=== PATIENT | male | born 1940 | race Caucasian/White ===

== ENCOUNTER 2018-08-25 18:49 | Emergency (ER) | payer OTHER, MEDICARE ==
[2018-08-25 19:02] VITALS: BP 150/90; PULSE 73; TEMP 97.1; BMI 25.9
--- NOTE | 2018-08-25 20:02 | PDOC ---
History of Present Illness - General Stated Complaint: VOMITING,NAUSEA Time Seen by Provider: 08/25/18 19:00 History Source: Patient, Family - History of Present Illness Initial Comments: 08/25/18 20:01 The patient is a 78 year old male with a PMH of CAD (s/p CABG), ESRD (on peritoneal HD) who presents to our ED c/o acute onset of lightheadedness and vomiting. @ bedside assists with history. Patient was sitting on the couch eating a clair orange when he suddenly felt lightheaded and then vomited (greenish, non-bloody). Denies any associated chest pain, shortness of breath, palpitations. called 911, requested they be taken to [facility] in [place], states they were brought here against their wishes. Patient now c/o drowsiness. 10 point ROS is negative including no abdominal pain, diarrhea/constipation, numbness/tingling, dysuria/hematuria. NKDA Surgical: CABG Social: lifetime non-smoker, social alcohol, denies other toxic habits PMD: Dr. James ([place]) Past History - Past Medical History Allergies/Adverse Reactions: Allergies Allergy/AdvReac Type Severity Reaction Status Date / Time No Known Allergies Allergy Verified 10/28/15 17:32 Home Medications: Ambulatory Orders Lisinopril [Prinivil -] 20 mg PO HS 12/17/14 Metoprolol Succinate [Toprol Xl] 25 mg PO HS 12/17/14 Atorvastatin Ca [Lipitor -] 40 mg PO HS 04/07/15 Fludrocortisone Acetate [Florinef -] 0.1 mg PO DAILY 04/07/15 Cardiac Disorders: Yes (TRIPLE BYPASS) HTN: Yes Hypercholesterolemia: Yes - Surgical History Cardiac Surgery: Yes (AORTIC VALVE REPLACEMENT) - Suicide/Smoking/Psychosocial Hx Smoking History: Unknown if ever smoked Hx Alcohol Use: No Drug/Substance Use Hx: No Substance Use Type: None *Physical Exam - Vital Signs Last Vital Signs Temp Pulse Resp BP Pulse Ox 97.1 F L 73 20 150/90 96 08/25/18 18:53 08/25/18 18:53 08/25/18 18:53 08/25/18 18:53 08/25/18 18:53 ED Treatment Course - RADIOLOGY Radiology Studies Ordered: Category Date Time Status CXRPORT [CHEST X-RAY PORTABLE*] [RAD] Stat Radiology 08/25/18 19:11 Ordered Medical Decision Making - Medical Decision Making 08/25/18 20:10 78 year old male w/acute onset of lightheadedness + emesis. Patient and patient's state they wish to be evaluated @ [facility]. Patient requesting transfer to [facility]. Patient informed they can stay and be evaluated in our ED or sign out AMA and present to [facility] for evaluation. Patient states he wishes to leave AMA. Refusing physical exam and all evaluation. 08/25/18 20:24 The patient is clinically sober, free from distracting injury, appears to have intact insight and judgment and reason and in my opinion has the capacity to make decisions. The patient presents with emesis and lightheadedness. I have explained that I am concerned that this may represent a heart attack, stroke, sepsis, appendicitis, cholecystitis, abdominal aneursym. The patient and patient's have both verbalized an understanding of my concerns. I have discussed the need for admission to get more information about potential causes of the patients emesis and lightheadedness. I have told the patient that if he leaves and has worsening emesis and lightheadedness, he could get much worse , could become critically ill, and could possibly become disabled or . I have asked him to stay in the hospital for evaluation monitoring. He is unwilling to stay for any evaluation. He is refusing any further care and is leaving against medical advice. I am unable to convince the patient to stay. I have answered all their questions. 08/25/18 20:26 08/25/18 20:47 *DC/Admit/Observation/Transfer Diagnosis at time of Disposition: Vomiting and diarrhea - Discharge Dispostion Disposition: AGAINST MEDICAL ADVICE Condition at time of disposition: Unchanged/Unknown - Referrals Referrals: Baudilio Calderón [Primary Care Provider] - - Patient Instructions - Post Discharge Activity
== END 2018-08-25 20:19 | disposition left against medical advice (07) ==
LOC: JER 18:49
DX: R11.10 Vomiting, unspecified (principal); R19.7 Diarrhea, unspecified; E78.00 Pure hypercholesterolemia, unspecified; Z95.2 Presence of prosthetic heart valve; I10 Essential (primary) hypertension
CPT/HCPCS: 99281-25

== ENCOUNTER 2019-09-07 00:22 | Inpatient (IN) | payer OTHER, MEDICARE ==
--- NOTE | 2019-09-07 01:26 | PDOC ---
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
--- NOTE | 2019-09-07 01:26 | PDOC ---
History of Present Illness - General Chief Complaint: Weakness Stated Complaint: WEAKNESS,DIALYSIS PT Time Seen by Provider: 09/07/19 01:22 - History of Present Illness Initial Comments: 09/07/19 01:25 79 yo M with h/o CAD s/p CABG, ESRD (Peritoneal HD), who p/w generalized weakness. Patient at bedside to assist in report. She states that patient was "weak," following return from outpt. apt. with PMD (09/06/19). Patient unable to ambulate up stairs, and unable to stand from seated position. Patient denies complaints. states that she was unable to perform daily peritoneal dialysis on patient. Pt. cell [phone] Massiel Coffman. Patient denies BERNAL, vision change, palpitations, cough, wheezing, orthopena, PND , leg swelling/pain, N/V, F,C, CP, SOB, urinary complaints, hematuria, BPR, abdominal pain, diarrhea, constipation, lightheadedness, sensory changes. PMHx: as noted above ROS: as noted SHx: Denies Etoh, IVDA, tobacco use Allergies: NKDA Past History - Past Medical History Allergies/Adverse Reactions: Allergies Allergy/AdvReac Type Severity Reaction Status Date / Time No Known Allergies Allergy Verified 09/07/19 01:07 Home Medications: Ambulatory Orders Metoprolol Succinate [Toprol Xl] 25 mg PO HS 12/17/14 Atorvastatin Ca [Lipitor -] 40 mg PO HS 04/07/15 Aspirin [ASA -] 325 mg PO DAILY 09/07/19 Calcitriol [Rocaltrol -] 0.25 mcg PO DAILY 09/07/19 Donepezil HCl [Aricept -] 10 mg PO DAILY 09/07/19 Lenalidomide [Revlimid] 0 mg PO WEEKLY 09/07/19 Losartan Potassium [Cozaar -] 25 mg PO DAILY 09/07/19 Sevelamer Carbonate [Renvela] 800 mg PO BID 09/07/19 Cardiac Disorders: Yes (TRIPLE BYPASS) HTN: Yes Hypercholesterolemia: Yes - Surgical History Cardiac Surgery: Yes (AORTIC VALVE REPLACEMENT) - Psycho Social/Smoking Cessation Hx Smoking History: Never smoked Hx Alcohol Use: No Drug/Substance Use Hx: No Substance Use Type: None Review of Systems - Review of Systems Comments:: 09/07/19 01:48 GENERAL/CONSTITUTIONAL: No fever or chills. No weakness. HEAD, EYES, EARS, NOSE AND THROAT: No change in vision. No ear pain or discharge. No sore throat. CARDIOVASCULAR: No chest pain or shortness of breath RESPIRATORY: No cough, wheezing, or hemoptysis. GASTROINTESTINAL: No nausea, vomiting, diarrhea or constipation. GENITOURINARY: No dysuria, frequency, or change in urination. MUSCULOSKELETAL: No joint or muscle swelling or pain. No neck or back pain. SKIN: No rash NEUROLOGIC: + Weakness. No headache, vertigo, loss of consciousness, or change in strength/sensation. ENDOCRINE: No increased thirst. No abnormal weight change HEMATOLOGIC/LYMPHATIC: No anemia, easy bleeding, or history of blood clots. ALLERGIC/IMMUNOLOGIC: No hives or skin allergy. *Physical Exam - Vital Signs Last Vital Signs Temp Pulse Resp BP Pulse Ox 99.6 F 80 15 112/64 97 09/07/19 00:30 09/07/19 00:30 09/07/19 00:30 09/07/19 00:30 09/07/19 00:30 - Physical Exam Comments: 09/07/19 01:52 GENERAL: Awake, alert, and fully oriented, in no acute distress HEAD: No signs of trauma, normocephalic, atraumatic EYES: PERRLA, EOMI, sclera anicteric, conjunctiva clear ENT: Hearing grossly normal, nares patent, oropharynx clear without exudates. Moist mucosa NECK: Normal ROM, supple, no lymphadenopathy, JVD, or masses LUNGS: No distress, speaks full sentences, clear to auscultation bilaterally HEART: Regular rate and rhythm, normal S1 and S2, no murmurs, rubs or gallops, peripheral pulses normal and equal bilaterally. ABDOMEN: + LLQ peritoneal dialysis catheter insertion site, c/d/i. Soft, nontender, normoactive bowel sounds. No guarding, no rebound. No masses EXTREMITIES : Normal inspection, Normal range of motion, no edema. No clubbing or cyanosis NEUROLOGICAL: Cranial nerves II through XII grossly intact. Normal speech, no focal sensorimotor deficits SKIN: Warm, Dry, normal turgor, no rashes or lesions noted ED Treatment Course - LABORATORY CBC & Chemistry Diagram: 09/07/19 02:00 09/07/19 02:00 Medical Decision Making - Medical Decision Making 09/07/19 01:44 79 yo M with h/o CAD s/p CABG, ESRD (Peritoneal HD), who p/w generalized weakness, inability to ambulate. Vitals wnl, AF, A&Ox4. Physical exam unremarkable. Patient neurologically intact. Will assess for cardiac dysarythmia , hypoglycemia, electrolyte abnml, metabolic and toxic derangements, acid base disturbances, infection. Ed Course: 09/07/19 02:45 EKG: NSR with absent MINH, STD. + LAD, LVH, OK 204, Q wave lead III. Nml R wave progression. 09/07/19 02:48 Laboratory Tests 09/07/19 09/07/19 09/07/19 02:00 02:00 02:00 WBC 3.4 L Hgb 9.2 L Hct 28.0 L Plt Count 106 L PT with INR 13.70 H INR 1.16 H Sodium 133 L Potassium 5.0 BUN 46.2 H Creatinine 8.6 H* 09/07/19 02:48 Patient to be admitted for generalized weakness Contacted patient Nephrology physician Dr. Sandy Baker [phone] 09/07/19 03:[address] Armas. Admit med/surg Discharge - Discharge Information Problems reviewed: Yes Clinical Impression/Diagnosis: Generalized weakness, Missed dialysis Condition: Stable - Admission Yes - Follow up/Referral - Patient Discharge Instructions - Post Discharge Activity
[2019-09-07 02:22] LABS: BASO % 1.2 % (0-2.0); EOS % 0.9 % (0-4.5); HEMOGLOBIN 9.2 GM/dL (11.7-16.9); MCH 33.1 pg (25.7-33.7); MCHC 32.8 g/dl (32.0-35.9); MEAN CELL VOLUME 101.1 fl (80-96); MEAN PLT VOLUME 8.4 fl (7.5-11.1); MONO % 13.8 % (3.8-10.2); NEUT % 72.1 % (42.8-82.8); PLATELET COUNT 106 K/MM3 (134-434); RBC 2.77 M/mm3 (4.00-5.60); RDW 16.2 % (11.9-15.9); WHITE BLOOD COUNT 3.4 K/mm3 (4.0-10.0)
[2019-09-07 02:32] LABS: INR 1.16 (0.83-1.09); PROTHROMBIN TIME (PATIENT) 13.7 SEC (9.7-13.0)
[2019-09-07 02:44] LABS: ALBUMIN 2.7 g/dl (3.4-5.0); BILIRUBIN,TOTAL 0.4 mg/dL (0.2-1); BLOOD UREA NITROGEN 46.2 mg/dL (7-18); CALCIUM 9.1 mg/dL (8.5-10.1); TOT PROT 6.4 g/dl (6.4-8.2)
[2019-09-07 02:46] LABS: CREATININE 8.6 mg/dL (0.55-1.3)
[2019-09-07 02:50] LABS: MAGNESIUM 1.8 mg/dL (1.8-2.4); N-TERMINAL BNP 3007.9 pg/ml (5-450)
--- NOTE | 2019-09-07 04:40 | PN ---
Teaching Attending Note Name of Resident: Nagi Russ ATTENDING PHYSICIAN STATEMENT I saw and evaluated the patient. I reviewed the resident's note and discussed the case with the resident. I agree with the resident's findings and plan as documented. SUBJECTIVE: 79-year-old male with end-stage renal disease on peritoneal dialysis, CAD status post CABG was brought in by his last evening after he was unable to ambulate up the stairs of his home due to generalized weakness. Patient denied any headaches, chest pain, abdominal pain, shortness of breath, focal weaknesses , loss of sensation. Also denied any fevers chills, cough, diarrhea, dysuria. OBJECTIVE: Last Vital Signs Temp Pulse Resp BP Pulse Ox 99.6 F 78 18 110/61 99 09/07/19 00:30 09/07/19 04:42 09/07/19 04:42 09/07/19 04:42 09/07/19 04:42 GENERAL: Well developed, well nourished. Awake and alert. No acute distress. HEENT: Normocephalic, atraumatic. PERRLA, EOMI. No conjunctival pallor. Sclera are non- icteric. Moist mucous membranes. Oropharynx is clear. NECK: Supple. Full ROM. No JVD. Carotid pulses 2+ and symmetric, without bruits. No thyromegaly. No lymphadenopathy. CARDIOVASCULAR: Regular rate and rhythm. No murmurs, rubs, or gallops. Distal pulses are 2+ and symmetric. PULMONARY: No evidence of respiratory distress. Lungs clear to auscultation bilaterally. No wheezing, rales or rhonchi. ABDOMINAL: Soft. Non-tender. Non-distended. No rebound or guarding. No organomegaly. Normoactive bowel sounds. Peritoneal dialysis catheter noted to be in abdomen MUSCULOSKELETAL Normal range of motion at all joints. No bony deformities or tenderness. No CVA tenderness. EXTREMITIES: No cyanosis. No clubbing. No edema. No calf tenderness. SKIN: Warm and dry. Normal capillary refill. No rashes. No jaundice. NEUROLOGICAL: Alert, awake, appropriate. Cranial nerves 2-12 intact. No deficits to light touch and temperature in face, upper extremities and lower extremities. No motor deficits in the in face, upper extremities and lower extremities. Normoreflexic in the upper and lower extremities. Normal speech. PSYCHIATRIC: Cooperative. Good eye contact. Appropriate mood and affect. Abnormal Lab Results 09/07/19 09/07/19 09/07/19 02:00 02:00 02:00 WBC 3.4 L RBC 2.77 L Hgb 9.2 L Hct 28.0 L MCV 101.1 H RDW 16.2 H Plt Count 106 L Monocytes % 13.8 H Monocytes % (Manual) 14 H PT with INR INR Sodium 133 L BUN 46.2 H Creatinine 8.6 H* AST 8 L ALT 10 L Alkaline Phosphatase 118 H B-Natriuretic Peptide 3007.9 H Albumin 2.7 L 09/07/19 02:00 WBC RBC Hgb Hct MCV RDW Plt Count Monocytes % Monocytes % (Manual) PT with INR 13.70 H INR 1.16 H Sodium BUN Creatinine AST ALT Alkaline Phosphatase B-Natriuretic Peptide Albumin Imaging studies reviewed ASSESSMENT AND PLAN: Generalized weakness with inability to ambulate. However do not suspect any CMM PROGRAMMER lesion observed no focal neurological deficits appreciated. Admit to [facility] Fall precautions and bedrest PT evaluation #End-stage renal disease on peritoneal dialysis Renal consult for peritoneal dialysis #CAD status post CABG ASA Statin #DVT prophylaxisheparin subcutaneously
[2019-09-07 04:56] LABS: ANISOCYTOSIS 2+; MACROCYTOSIS 0; PLATELET ESTIMATE DECREASED
--- NOTE | 2019-09-07 05:03 | HP ---
CHIEF COMPLAINT: Unable to walk PCP: Dr. Corrie Calderón ([facility]) HISTORY OF PRESENT ILLNESS: 79 y/o male w PMH CAD s/ CABG, ESRD on HD (daily peritoneal) BIBEMS 2/2 concern from that patient lacked energy. Pt states that he had just completed his home peritoneal dialysis and took a nap. The pt reports that he was awakened by EMT. Pt denies inability to walk. He states at baseline he normally walks w/o assistance throughout his home, which has two flights of stairs. Pt was brought it for concern that he could not take stairs or ambulate. He reports no pain. He denies CP, SOB, and dizziness. ER course was notable for: (1) Weakness reported and taken to CT Recent Travel: Denies Family history: Denies PAST MEDICAL HISTORY: CAD s/ CABG, ESRD on HD (daily peritoneal) PAST SURGICAL HISTORY: CABG 2008 Social History: Smoking: Former smoker Alcohol: Wine w dinner Drugs: Denies Allergies No Known Allergies Allergy (Verified 09/07/19 01:07) HOME MEDICATIONS: Home Medications Medication Instructions Recorded Metoprolol Succinate [Toprol Xl] 25 mg PO HS 12/17/14 Atorvastatin Ca [Lipitor -] 40 mg PO HS 04/07/15 Aspirin [ASA -] 325 mg PO DAILY 09/07/19 Calcitriol [Rocaltrol -] 0.25 mcg PO DAILY 09/07/19 Donepezil HCl [Aricept -] 10 mg PO DAILY 09/07/19 Lenalidomide [Revlimid] 0 mg PO WEEKLY 09/07/19 Losartan Potassium [Cozaar -] 25 mg PO DAILY 09/07/19 Sevelamer Carbonate [Renvela] 800 mg PO BID 09/07/19 REVIEW OF SYSTEMS CONSTITUTIONAL: Absent: fever, chills, diaphoresis, generalized weakness, malaise, loss of appetite, weight change HEENT: Absent: rhinorrhea, nasal congestion, throat pain, throat swelling, difficulty swallowing, mouth swelling, ear pain, eye pain, visual changes CARDIOVASCULAR: Absent: chest pain, syncope, palpitations, irregular heart rate, lightheadedness , peripheral edema RESPIRATORY: Absent: cough, shortness of breath, dyspnea with exertion, orthopnea, wheezing, stridor, hemoptysis GASTROINTESTINAL: Absent: abdominal pain, abdominal distension, nausea, vomiting, diarrhea, constipation, melena, hematochezia GENITOURINARY: Absent: dysuria, frequency, urgency, hesitancy, hematuria, flank pain, genital pain MUSCULOSKELETAL: Absent: myalgia, arthralgia, joint swelling, back pain, neck pain SKIN: Absent: rash, itching, pallor HEMATOLOGIC/IMMUNOLOGIC: Absent: easy bleeding, easy bruising, lymphadenopathy, frequent infections ENDOCRINE: Absent: unexplained weight gain, unexplained weight loss, heat intolerance, cold intolerance NEUROLOGIC: Absent: headache, focal weakness or paresthesias, dizziness, unsteady gait, seizure, mental status changes, bladder or bowel incontinence PSYCHIATRIC: Absent: anxiety, depression, suicidal or homicidal ideation, hallucinations. PHYSICAL EXAMINATION Vital Signs - 24 hr 09/07/19 09/07/19 09/07/19 00:30 04:40 04:42 Temperature 99.6 F Pulse Rate 80 Pulse Rate [ 78 Radial] Respiratory 15 18 Rate Blood Pressure 112/64 Blood Pressure 110/61 [Left Arm] O2 Sat by Pulse 97 99 99 Oximetry (%) GENERAL: AOx3, in no acute distress. Tangential thought but orientable HEAD: NCAT EYES: BALA, EOMI, conjunctiva clear. ENT: Dentures in place. Ears normal, nares patent, oropharynx clear without exudates. Moist mucous membranes. NECK: Normal range of motion, supple without lymphadenopathy, JVD, or masses. LUNGS: CTAB. No wheezes, and no crackles. No accessory muscle use. HEART: RRR s1 s2 ABDOMEN: Dialysis port in place. Soft, some fluid, non-distended BS present in all 4 quadrants, non-distended, no JVD, MUSCULOSKELETAL: No bony deformities or tenderness. No CVA tenderness. UPPER EXTREMITIES: 2+ pulses, warm, well-perfused. No cyanosis. No clubbing. No peripheral edema. LOWER EXTREMITIES: 2+ pulses, warm, well-perfused. No calf tenderness. No peripheral edema. NEUROLOGICAL: Cranial nerves II-XII intact. Strength 5/5 in all extremities. Normal speech. Gait not appreciated. PSYCHIATRIC: Tangential thought but orientable. Cooperative. Good eye contact. Appropriate mood and affect. SKIN: Warm, dry, normal turgor, no rashes or lesions noted, normal capillary refill. Laboratory Results - last 24 hr 09/07/19 09/07/19 09/07/19 02:00 02:00 02:00 WBC 3.4 L RBC 2.77 L Hgb 9.2 L Hct 28.0 L MCV 101.1 H MCH 33.1 MCHC 32.8 RDW 16.2 H Plt Count 106 L MPV 8.4 Absolute Neuts (auto) 2.5 Neutrophils % 72.1 Neutrophils % (Manual) 62.0 Band Neutrophils % 13.0 Lymphocytes % 12.0 Lymphocytes % (Manual) 10.0 Monocytes % 13.8 H Monocytes % (Manual) 14 H Eosinophils % 0.9 Eosinophils % (Manual) 0.0 Basophils % 1.2 Basophils % (Manual) 1.0 Myelocytes % (Man) 0 Promyelocytes % (Man) 0 Blast Cells % (Manual) 0 Nucleated RBC % 0 Metamyelocytes 0 Hypochromia 1+ Platelet Estimate Decreased Polychromasia 0 Poikilocytosis 1+ Anisocytosis 2+ Microcytosis 2+ Macrocytosis 0 PT with INR INR PTT (Actin FS) Sodium Potassium Chloride Carbon Dioxide Anion Gap BUN 46.2 Creatinine 8.6 Est GFR (CKD-EPI)AfAm Est GFR (CKD-EPI)NonAf Random Glucose Calcium Magnesium 1.8 Total Bilirubin AST ALT Alkaline Phosphatase 118 Creatine Kinase 166 Creatine Kinase Index 1.2 CK-MB (CK-2) 2.0 Troponin I < 0.02 B-Natriuretic Peptide 3007.9 H Total Protein Albumin Alcohol, Quantitative Cancelled < 3.0 09/07/19 09/07/19 09/07/19 02:00 02:00 02:00 WBC RBC Hgb Hct MCV MCH MCHC RDW Plt Count MPV Absolute Neuts (auto) Neutrophils % Neutrophils % (Manual) Band Neutrophils % Lymphocytes % Lymphocytes % (Manual) Monocytes % Monocytes % (Manual) Eosinophils % Eosinophils % (Manual) Basophils % Basophils % (Manual) Myelocytes % (Man) Promyelocytes % (Man) Blast Cells % (Manual) Nucleated RBC % Metamyelocytes Hypochromia Platelet Estimate Polychromasia Poikilocytosis Anisocytosis Microcytosis Macrocytosis PT with INR INR PTT (Actin FS) Sodium 133 L Potassium 5.0 Chloride 100 Carbon Dioxide 24 Anion Gap 8 BUN 46.2 H Creatinine 8.6 H* Est GFR (CKD-EPI)AfAm 6.13 Est GFR (CKD-EPI)NonAf 5.29 Random Glucose 94 Calcium 9.1 Magnesium Cancelled Total Bilirubin 0.4 AST 8 L ALT 10 L Alkaline Phosphatase 118 H Creatine Kinase Creatine Kinase Index CK-MB (CK-2) Troponin I B-Natriuretic Peptide Cancelled Total Protein 6.4 Albumin 2.7 L Alcohol, Quantitative 09/07/19 09/07/19 02:00 02:31 WBC RBC Hgb Hct MCV MCH MCHC RDW Plt Count MPV Absolute Neuts (auto) Neutrophils % Neutrophils % (Manual) Band Neutrophils % Lymphocytes % Lymphocytes % (Manual) Monocytes % Monocytes % (Manual) Eosinophils % Eosinophils % (Manual) Basophils % Basophils % (Manual) Myelocytes % (Man) Promyelocytes % (Man) Blast Cells % (Manual) Nucleated RBC % Metamyelocytes Hypochromia Platelet Estimate Polychromasia Poikilocytosis Anisocytosis Microcytosis Macrocytosis PT with INR 13.70 H INR 1.16 H PTT (Actin FS) 30.5 Sodium Potassium Chloride Carbon Dioxide Anion Gap BUN Creatinine Est GFR (CKD-EPI)AfAm Est GFR (CKD-EPI)NonAf Random Glucose Calcium Magnesium Total Bilirubin AST ALT Alkaline Phosphatase Creatine Kinase Creatine Kinase Index CK-MB (CK-2) Troponin I B-Natriuretic Peptide 3,007.9 Total Protein Albumin Alcohol, Quantitative ASSESSMENT/PLAN: 79 y/o male w PMH CAD s/ CABG, ESRD on HD (daily peritoneal) BIBEMS 2/2 concern from that patient lacked energy after home peritoneal dialysis session. # Generalized weakness - PT - F/u Head CT - Fall precautions - Contact PCP to clarify PMH # ESRD - Consult nephrology # Pancytopenia - Contact PCP to clarify PMH and need for REVLIMID (lenalidomide) # CAD s/p CABG - Cont. home regimen ASA and statin # F/E/N - I/O po hydration - Cont. to monitor - Renal diet # DVT prophylaxis - Heparin SQ # Disposition - Admit to med/surg Nagi Russ MD Visit type - Emergency Visit Emergency Visit: Yes ED Registration Date: 09/07/19 Care time: The patient presented to the Emergency Department on the above date and was hospitalized for further evaluation of their emergent condition. - New Patient This patient is new to me today: Yes Date on this admission: 09/07/19 - Critical Care Critical Care patient: No ATTENDING PHYSICIAN STATEMENT I saw and evaluated the patient. I reviewed the resident's note and discussed the case with the resident. I agree with the resident's findings and plan as documented. SUBJECTIVE: OBJECTIVE: ASSESSMENT AND PLAN:
[2019-09-07 05:30] VITALS: TEMP 97.9; BMI 25.1
[2019-09-07] MEDS ORDERED: HEPARIN NA (PORCINE) 5,000 UNITS/ML 1ML VIAL SQ SCH (06:00)
--- NOTE | 2019-09-07 08:35 | PN ---
Progress Note, Physician History of Present Illness: 79 y/o male w PMH CAD s/ CABG, ESRD on HD (daily peritoneal) BIBEMS 2/2 concern from that patient lacked energy. Pt states that he had just completed his home peritoneal dialysis and took a nap. The pt reports that he was awakened by EMT. Pt denies inability to walk. He states at baseline he normally walks w/o assistance throughout his home, which has two flights of stairs. Pt was brought it for concern that he could not take stairs or ambulate. He reports no pain. He denies CP, SOB, and dizziness. ER course was notable for: (1) Weakness reported and taken to CT - Current Medication List Current Medications: Active Medications Aspirin (Asa -) 325 mg PO DAILY [facility] Atorvastatin Calcium (Lipitor -) 40 mg PO HS [facility] Calcitriol (Rocaltrol -) 0.25 mcg PO DAILY [facility] Donepezil HCl (Aricept -) 10 mg PO DAILY [facility] Heparin Sodium (Porcine) (Heparin -) 5,000 unit SQ TID [facility] Last Admin: 09/07/19 06:48 Dose: 5,000 unit Losartan Potassium (Cozaar -) 25 mg PO DAILY [facility] Metoprolol Succinate (Toprol Xl -) 25 mg PO HS [facility] Sevelamer Carbonate (Renvela -) 800 mg PO BID [facility] - Objective Vital Signs: Vital Signs Temperature 97.9 F 09/07/19 05:19 Pulse Rate 77 09/07/19 05:19 Respiratory Rate 18 09/07/19 05:19 Blood Pressure 108/62 09/07/19 05:19 O2 Sat by Pulse Oximetry (%) 96 09/07/19 05:19 Constitutional: Yes: Well Nourished, No Distress, Calm Eyes: Yes: WNL, Conjunctiva Clear HENT: Yes: WNL, Atraumatic, Normocephalic Neck: Yes: WNL, Supple, Trachea Midline Cardiovascular: Yes: WNL, Regular Rate and Rhythm Respiratory: Yes: WNL, Regular, CTA Bilaterally Gastrointestinal: Yes: Other (PD cath noted) ...Rectal Exam: Yes: Deferred Genitourinary: Yes: WNL Breast(s): Yes: WNL Musculoskeletal: Yes: WNL Extremities: Yes: WNL Edema: No Peripheral Pulses WNL: Yes Peripheral Pulses: Left Radial: 2+, Right Radial: 2+, Left Doralis Pedis: 2+, Right Dorsalis Pedis: 2+, Left Femoral: 2+, Right Femoral: 2+ Integumentary: Yes: WNL Neurological: Yes: WNL, Alert, Oriented ...Motor Strength: WNL Psychiatric: Yes: WNL Labs: CBC, BMP 09/07/19 02:00 09/07/19 02:00 INR, PTT INR 1.16 (0.83-1.09) H 09/07/19 02:00 - ....Imaging Chest X-ray: Report Reviewed, Image Reviewed (CXR no acute pathology) Cat Scan: Report Reviewed (Moserate atrophy, no acute pathology) Problem List - Problems (1) ESRD on peritoneal dialysis Code(s): N18.6 - END STAGE RENAL DISEASE; Z99.2 - DEPENDENCE ON RENAL DIALYSIS (2) Prophylactic measure Code(s): Z29.9 - ENCOUNTER FOR PROPHYLACTIC MEASURES, UNSPECIFIED (3) CAD (coronary artery disease) Code(s): I25.10 - ATHSCL HEART DISEASE OF [place] CORONARY ARTERY W/O ANG PCTRS (4) Hx of CABG Code(s): Z95.1 - PRESENCE OF AORTOCORONARY BYPASS GRAFT (5) Generalized weakness Code(s): R53.1 - WEAKNESS (6) Pancytopenia Code(s): D61.818 - OTHER PANCYTOPENIA
[2019-09-07 09:16] LABS: HEMATOCRIT 27.9 % (35.4-49); HEMOGLOBIN 9.3 GM/dL (11.7-16.9); MCH 33.1 pg (25.7-33.7); MCHC 33.2 g/dl (32.0-35.9); MEAN CELL VOLUME 99.9 fl (80-96); MEAN PLT VOLUME 8.4 fl (7.5-11.1); PLATELET COUNT 107 K/MM3 (134-434); RBC 2.79 M/mm3 (4.00-5.60); RDW 15.9 % (11.9-15.9)
[2019-09-07 09:58] LABS: BLOOD UREA NITROGEN 46.8 mg/dL (7-18); CALCIUM 9.1 mg/dL (8.5-10.1); MAGNESIUM 1.8 mg/dL (1.8-2.4); PHOSPHOROUS 3.4 mg/dL (2.5-4.9); POTASSIUM 4.6 mmol/L (3.5-5.1)
[2019-09-07] MEDS ORDERED: DONEPEZIL HCL 10 MG TABLET (FP) PO SCH (10:00)
[2019-09-07] MEDS ORDERED: CALCITRIOL 0.25 MCG CAPSULE (FP) PO SCH (10:00)
[2019-09-07] MEDS ORDERED: LOSARTAN POTASSIUM 25 MG TABLET PO SCH (10:00)
[2019-09-07] MEDS ORDERED: ASPIRIN 325 MG TABLET PO SCH (10:00)
[2019-09-07] MEDS ORDERED: SEVELAMER CARBONATE 800 MG TAB (FP) PO SCH (10:00)
[2019-09-07 10:06] LABS: CREATININE 8.9 mg/dL (0.55-1.3)
--- NOTE | 2019-09-07 10:33 | EKG ---
Test Reason : Blood Pressure : / mmHG Vent. Rate : 075 BPM Atrial Rate : 075 BPM P-R Int : 204 ms QRS Dur : 120 ms QT Int : 424 ms P-R-T Axes : 012 -36 -40 degrees QTc Int : 473 ms POOR DATA QUALITY, INTERPRETATION MAY BE ADVERSELY AFFECTED NORMAL SINUS RHYTHM LEFT AXIS DEVIATION LEFT VENTRICULAR HYPERTROPHY WITH QRS WIDENING NONSPECIFIC ST AND T WAVE ABNORMALITY ABNORMAL ECG NO PREVIOUS ECGS AVAILABLE Confirmed by RIAN MARTINEZ, BRY ([id number]) on 09/07/2019 10:33:04 AM Referred By: Confirmed By:BRY MODI MD
--- NOTE | 2019-09-07 12:23 | DS ---
Physical Exam: SUBJECTIVE: Patient seen and examined Seen with at bedside. Medically stable to be discharge home with services OBJECTIVE: 79 y/o male w PMH CAD s/ CABG, ESRD on HD (daily peritoneal) BIBEMS 2/2 concern from that patient lacked energy. Saw home switchbox assembler and was given flu and pneumococcal vaccines. Went home completed his home peritoneal dialysis and took a nap. was concerned that he was more tired than usual and brought him to ED Vital Signs Period Temp Pulse Resp BP Sys/Osullivan Pulse Ox Last 24 Hr 97.9 F-99.6 F 77-80 15-18 108-112/61-64 96-99 PHYSICAL EXAM Constitutional: Yes: Well Nourished, No Distress, Calm Eyes: Yes: WNL, Conjunctiva Clear HENT: Yes: WNL, Atraumatic, Normocephalic Neck: Yes: WNL, Supple, Trachea Midline Cardiovascular: Yes: WNL, Regular Rate and Rhythm Respiratory: Yes: WNL, Regular, CTA Bilaterally Gastrointestinal: Yes: Other (PD cath noted) ...Rectal Exam: Yes: Deferred Genitourinary: Yes: WNL Breast(s): Yes: WNL Musculoskeletal: Yes: WNL Extremities: Yes: WNL Edema: No Peripheral Pulses WNL: Yes Peripheral Pulses: Left Radial: 2+, Right Radial: 2+, Left Doralis Pedis: 2+, Right Dorsalis Pedis: 2+, Left Femoral: 2+, Right Femoral: 2+ Integumentary: Yes: WNL Neurological: Yes: WNL, Alert, Oriented ...Motor Strength: WNL Psychiatric: Yes: WNL LABS Laboratory Results - last 24 hr 09/07/19 09/07/19 09/07/19 02:00 02:00 02:00 WBC 3.4 L RBC 2.77 L Hgb 9.2 L Hct 28.0 L MCV 101.1 H MCH 33.1 MCHC 32.8 RDW 16.2 H Plt Count 106 L MPV 8.4 Absolute Neuts (auto) 2.5 Neutrophils % 72.1 Neutrophils % (Manual) 62.0 Band Neutrophils % 13.0 Lymphocytes % 12.0 Lymphocytes % (Manual) 10.0 Monocytes % 13.8 H Monocytes % (Manual) 14 H Eosinophils % 0.9 Eosinophils % (Manual) 0.0 Basophils % 1.2 Basophils % (Manual) 1.0 Myelocytes % (Man) 0 Promyelocytes % (Man) 0 Blast Cells % (Manual) 0 Nucleated RBC % 0 Metamyelocytes 0 Hypochromia 1+ Platelet Estimate Decreased Polychromasia 0 Poikilocytosis 1+ Anisocytosis 2+ Microcytosis 2+ Macrocytosis 0 PT with INR INR PTT (Actin FS) Sodium Potassium Chloride Carbon Dioxide Anion Gap BUN Creatinine Est GFR (CKD-EPI)AfAm Est GFR (CKD-EPI)NonAf Random Glucose Calcium Phosphorus Magnesium 1.8 Total Bilirubin AST ALT Alkaline Phosphatase Creatine Kinase 166 Creatine Kinase Index 1.2 CK-MB (CK-2) 2.0 Troponin I < 0.02 B-Natriuretic Peptide 3007.9 H Total Protein Albumin Vitamin B12 Serum Folate Alcohol, Quantitative Cancelled < 3.0 09/07/19 09/07/19 09/07/19 02:00 02:00 02:00 WBC RBC Hgb Hct MCV MCH MCHC RDW Plt Count MPV Absolute Neuts (auto) Neutrophils % Neutrophils % (Manual) Band Neutrophils % Lymphocytes % Lymphocytes % (Manual) Monocytes % Monocytes % (Manual) Eosinophils % Eosinophils % (Manual) Basophils % Basophils % (Manual) Myelocytes % (Man) Promyelocytes % (Man) Blast Cells % (Manual) Nucleated RBC % Metamyelocytes Hypochromia Platelet Estimate Polychromasia Poikilocytosis Anisocytosis Microcytosis Macrocytosis PT with INR INR PTT (Actin FS) Sodium 133 L Potassium 5.0 Chloride 100 Carbon Dioxide 24 Anion Gap 8 BUN 46.2 H Creatinine 8.6 H* Est GFR (CKD-EPI)AfAm 6.13 Est GFR (CKD-EPI)NonAf 5.29 Random Glucose 94 Calcium 9.1 Phosphorus Magnesium Cancelled Total Bilirubin 0.4 AST 8 L ALT 10 L Alkaline Phosphatase 118 H Creatine Kinase Creatine Kinase Index CK-MB (CK-2) Troponin I B-Natriuretic Peptide Cancelled Total Protein 6.4 Albumin 2.7 L Vitamin B12 Serum Folate Alcohol, Quantitative 09/07/19 09/07/19 09/07/19 02:00 02:31 07:50 WBC 3.0 L RBC 2.79 L Hgb 9.3 L Hct 27.9 L MCV 99.9 H MCH 33.1 MCHC 33.2 RDW 15.9 Plt Count 107 L MPV 8.4 Absolute Neuts (auto) Neutrophils % Neutrophils % (Manual) Band Neutrophils % Lymphocytes % Lymphocytes % (Manual) Monocytes % Monocytes % (Manual) Eosinophils % Eosinophils % (Manual) Basophils % Basophils % (Manual) Myelocytes % (Man) Promyelocytes % (Man) Blast Cells % (Manual) Nucleated RBC % Metamyelocytes Hypochromia Platelet Estimate Polychromasia Poikilocytosis Anisocytosis Microcytosis Macrocytosis PT with INR 13.70 H INR 1.16 H PTT (Actin FS) 30.5 Sodium Potassium Chloride Carbon Dioxide Anion Gap BUN Creatinine Est GFR (CKD-EPI)AfAm Est GFR (CKD-EPI)NonAf Random Glucose Calcium Phosphorus Magnesium Total Bilirubin AST ALT Alkaline Phosphatase Creatine Kinase Creatine Kinase Index CK-MB (CK-2) Troponin I B-Natriuretic Peptide Total Protein Albumin Vitamin B12 Serum Folate Alcohol, Quantitative 09/07/19 09/07/19 07:50 07:50 WBC RBC Hgb Hct MCV MCH MCHC RDW Plt Count MPV Absolute Neuts (auto) Neutrophils % Neutrophils % (Manual) Band Neutrophils % Lymphocytes % Lymphocytes % (Manual) Monocytes % Monocytes % (Manual) Eosinophils % Eosinophils % (Manual) Basophils % Basophils % (Manual) Myelocytes % (Man) Promyelocytes % (Man) Blast Cells % (Manual) Nucleated RBC % Metamyelocytes Hypochromia Platelet Estimate Polychromasia Poikilocytosis Anisocytosis Microcytosis Macrocytosis PT with INR INR PTT (Actin FS) Sodium 134 L Potassium 4.6 Chloride 101 Carbon Dioxide 24 Anion Gap 9 BUN 46.8 H Creatinine 8.9 H* Est GFR (CKD-EPI)AfAm 5.88 Est GFR (CKD-EPI)NonAf 5.07 Random Glucose 87 Calcium 9.1 Phosphorus 3.4 Magnesium 1.8 Total Bilirubin AST ALT Alkaline Phosphatase Creatine Kinase Creatine Kinase Index CK-MB (CK-2) Troponin I B-Natriuretic Peptide Total Protein Albumin Vitamin B12 575 Serum Folate 7 Alcohol, Quantitative HOSPITAL COURSE: Date of Admission:09/07/19 Date of Discharge: 09/07/19 ....Imaging Chest X-ray: Report Reviewed, Image Reviewed (CXR no acute pathology) Cat Scan: Report Reviewed (Moderate atrophy, no acute pathology) Problem List - Problems (1) ESRD on peritoneal dialysis Continue with PD as per [facility]. Follow with Dr Faust as outpt. Code(s): N18.6 - END STAGE RENAL DISEASE; Z99.2 - DEPENDENCE ON RENAL DIALYSIS (2) Prophylactic measure tolerating renal diet. Code(s): Z29.9 - ENCOUNTER FOR PROPHYLACTIC MEASURES, UNSPECIFIED (3) CAD (coronary artery disease) Continue with home medciations Code(s): I25.10 - ATHSCL HEART DISEASE OF [place] CORONARY ARTERY W/O ANG PCTRS (4) Hx of CABG Code(s): Z95.1 - PRESENCE OF AORTOCORONARY BYPASS GRAFT (5) Generalized weakness Referral made for VNS and PT Continue to use [facility] for assistance. Fall precautionsCode(s): R53.1 - WEAKNESS Medically stable for discharge to home with services in place. Follow with switchbox assembler as outpatient Minutes to complete discharge: 60 Discharge Summary Problems reviewed: Yes Reason For Visit: MISSED DIALYSIS,WEAKNESS Current Active Problems CAD (coronary artery disease) (Acute) ESRD on peritoneal dialysis (Acute) Generalized weakness (Acute) Hx of CABG (Acute) Missed dialysis (Acute) Pancytopenia (Acute) Prophylactic measure (Acute) Hospital Course: HOSPITAL COURSE: Date of Admission:09/07/19 Date of Discharge: 09/07/19 ....Imaging Chest X-ray: Report Reviewed, Image Reviewed (CXR no acute pathology) Cat Scan: Report Reviewed (Moderate atrophy, no acute pathology) Problem List - Problems (1) ESR[facility] on peritoneal dialysis [facility] Follow with Dr Faust as outpt. Code(s): N18.6 - END STAGE RENAL DISEASE; Z99.2 - DEPENDENCE ON RENAL DIALYSIS (2) Prophylactic measure tolerating renal diet. Code(s): Z29.9 - ENCOUNTER FOR PROPHYLACTIC MEASURES, UNSPECIFIED (3) CAD (coronary artery disease) Continue with home medciations Code(s): I25.10 - ATHSCL HEART DISEASE OF [place] CORONARY ARTERY W/O ANG PCTRS (4) Hx of CABG Code(s): Z95.1 - PRESENCE OF AORTOCORONARY BYPASS GRAFT (5) Generalized weakness Referral made for VNS and PT Continue to use wlaker for assistance. Fall precautionsCode(s): R53.1 - WEAKNESS Medically stable for discharge to home with services in place. Follow with switchbox assembler as outpatient Condition: Improved - Instructions Diet, Activity, Other Instructions: DISCHARGE 09/07 YOUR VISIT You came to the hospital because you were more tired than usual after you competed your PD. Your blood work was in normal limits and you we seen by the switchbox assembler-Dr Faust. You can be discharged to home to complete your dialysis at home. The curb worker is setting up for Visiting nurse to see you in your home and the Physical Therapist will be arranged through them. MEDICATIONS Please continue to take your home medications as prescribed there was no changes ADDITIONAL CARE Please make an appointment to see your primary care provider, Dr. Calderón 1 week from today. You can transfer to Dr Faust as your kidney doctor. Call to make an appointment ADDITIONAL INFORMATION Please call 911 or come directly to the emergency department if you experience unusual headache, vision change, shortness of breath, chest pain, numbness, tingling, loss of alertness/awareness, loss of function, unusual bleeding or any alarming symptoms. Referrals: Baudilio Calderón [Primary Care Provider] - Jennifer Faust MD [Staff Physician] - 1 Week (call for appointment) Disposition: VNS/HOME HEALTH CARE - Home Medications Comprehensive Discharge Medication List: Ambulatory Orders Metoprolol Succinate [Toprol Xl] 25 mg PO HS 12/17/14 Atorvastatin Ca [Lipitor -] 40 mg PO HS 04/07/15 Aspirin [ASA -] 325 mg PO DAILY 09/07/19 Calcitriol [Rocaltrol -] 0.25 mcg PO DAILY 09/07/19 Donepezil HCl [Aricept -] 10 mg PO DAILY 09/07/19 Lenalidomide [Revlimid] 0 mg PO WEEKLY 09/07/19 Losartan Potassium [Cozaar -] 25 mg PO DAILY 09/07/19 Sevelamer Carbonate [Renvela] 800 mg PO BID 09/07/19 Prescription Drug Monitoring Program (I-STOP) results: I-STOP reviewed and issues identified Problem List - Problems (1) ESRD on peritoneal dialysis Code(s): N18.6 - END STAGE RENAL DISEASE; Z99.2 - DEPENDENCE ON RENAL DIALYSIS (2) Prophylactic measure Code(s): Z29.9 - ENCOUNTER FOR PROPHYLACTIC MEASURES, UNSPECIFIED (3) CAD (coronary artery disease) Code(s): I25.10 - ATHSCL HEART DISEASE OF [place] CORONARY ARTERY W/O ANG PCTRS (4) Hx of CABG Code(s): Z95.1 - PRESENCE OF AORTOCORONARY BYPASS GRAFT (5) Generalized weakness Code(s): R53.1 - WEAKNESS (6) Pancytopenia Code(s): D61.818 - OTHER PANCYTOPENIA This patient is new to me today: Yes Date on this admission: 09/07/19 Emergency Visit: Yes ED Registration Date: 09/07/19 Care time: The patient presented to the Emergency Department on the above date and was hospitalized for further evaluation of their emergent condition. Critical Care patient: No - Discharge Referral Referred to [facility] Med P.C.: No
--- NOTE | 2019-09-07 12:27 | CONSULT ---
Consult Consult Specialty:: Nephrology Reason for Consultation:: ESRD - History of Present Illness Chief Complaint: weakness History of Present Illness: Pt is a 79 year old male with pmhx of ESRD on PD, cad, and cabg who was brought to the ER for weakness. He last had his PD at home yesterday. He did get a flu shot yesterday. He is now awake and alert. He denies shortness of breath. He says he feels better and wants to go home. He denies edema. He did have some of his lunch however says the he does not like the food. [place] a PD clinic [place] the city. I did discuss his care with his son, Placido, ever the phone and his at bedside. - History Source History Provided By: Patient, Family Member - Past Medical History Cardio/Vascular: Yes: CAD, HTN Renal/: Yes: Renal Failure, Other (PD) Heme/Onc: Yes: Anemia - Past Surgical History Past Surgical History: Yes: CABG Additional Surgical History: pd catheter - Alcohol/Substance Use Hx Alcohol Use: No - Smoking History Smoking history: Never smoked Home Medications - Allergies Allergies/Adverse Reactions: Allergies Allergy/AdvReac Type Severity Reaction Status Date / Time No Known Allergies Allergy Verified 09/07/19 01:07 - Home Medications Home Medications: Ambulatory Orders Metoprolol Succinate [Toprol Xl] 25 mg PO HS 12/17/14 Atorvastatin Ca [Lipitor] 40 mg PO HS 04/07/15 Aspirin [ASA -] 325 mg PO DAILY 09/07/19 Calcitriol [Calcitriol -] 0.25 mcg PO DAILY 09/07/19 Donepezil HCl [Aricept -] 10 mg PO DAILY 09/07/19 Lenalidomide [Revlimid] 0 mg PO WEEKLY 09/07/19 Losartan Potassium [Cozaar -] 25 mg PO DAILY 09/07/19 Sevelamer Carbonate [Renvela -] 800 mg PO BID 09/07/19 Family Medical History Family History: Denies Review of Systems - Review of Systems Constitutional: reports: No Symptoms Eyes: reports: No Symptoms HENT: reports: No Symptoms Neck: reports: No Symptoms Cardiovascular: reports: No Symptoms Respiratory: reports: No Symptoms Gastrointestinal: reports: No Symptoms Genitourinary: reports: No Symptoms Musculoskeletal: reports: No Symptoms Integumentary: reports: No Symptoms Neurological: reports: No Symptoms Endocrine: reports: No Symptoms Hematology/Lymphatic: reports: No Symptoms Psychiatric: reports: No Symptoms Physical Exam Vital Signs: Vital Signs Temperature 97.9 F 09/07/19 05:19 Pulse Rate 77 09/07/19 05:19 Respiratory Rate 18 09/07/19 05:19 Blood Pressure 108/62 09/07/19 05:19 O2 Sat by Pulse Oximetry (%) 96 09/07/19 05:19 Constitutional: Yes: Calm Eyes: Yes: Conjunctiva Clear HENT: Yes: Atraumatic Neck: Yes: Supple Cardiovascular: Yes: S1, S2 Respiratory: Yes: CTA Bilaterally Gastrointestinal: Yes: Soft, Other (pd catheter site clean) Renal/: Yes: WNL Musculoskeletal: Yes: WNL Edema: No Neurological: Yes: Oriented Psychiatric: Yes: Oriented Labs: CBC, BMP 09/07/19 07:50 09/07/19 07:50 Laboratory Tests 09/07/19 07:50 Sodium 134 L Potassium 4.6 Creatinine 8.9 H* Imaging - Results Chest X-ray: Report Reviewed Problem List - Problems (1) ESRD on peritoneal dialysis Code(s): N18.6 - END STAGE RENAL DISEASE; Z99.2 - DEPENDENCE ON RENAL DIALYSIS (2) Generalized weakness Code(s): R53.1 - WEAKNESS (3) Hx of CABG Code(s): Z95.1 - PRESENCE OF AORTOCORONARY BYPASS GRAFT Assessment/Plan Current Medications Generic Name Dose Route Start Last Admin Trade Name Freq PRN Reason Stop Dose Admin Aspirin 325 mg 09/07/19 10:00 09/07/19 10:01 Asa - PO 325 mg DAILY [facility] Administration Atorvastatin Calcium 40 mg 09/07/19 22:00 Lipitor - PO HS [facility] Calcitriol 0.25 mcg 09/07/19 10:00 09/07/19 10:01 Rocaltrol - PO 0.25 mcg DAILY [facility] Administration Donepezil HCl 10 mg 09/07/19 10:00 09/07/19 10:01 Aricept - PO 10 mg DAILY [facility] Administration Heparin Sodium (Porcine) 5,000 unit 09/07/19 06:00 09/07/19 06:48 Heparin - SQ 5,000 unit TID [facility] Administration Losartan Potassium 25 mg 09/07/19 10:00 09/07/19 10:01 Cozaar - PO 25 mg DAILY [facility] Administration Metoprolol Succinate 25 mg 09/07/19 22:00 Toprol Xl - PO HS [facility] Sevelamer Carbonate 800 mg 09/07/19 10:00 09/07/19 10:01 Renvela - PO 800 mg BID [facility] Administration Impression 1. ESRD on PD 2. HTN 3. fatigue and weakness 4. HLD 5. CAD 6. anemia Plan - pt will cont PD at home - symptoms have resolved - discussed with sonPlacido - information given for local PD unit - pt advised to follow with primary and with gum remover - discussed with medical team - encourage PO intake
[2019-09-07 13:29] VITALS: BP 124/70; PULSE 72
[2019-09-07] MEDS ORDERED: ATORVASTATIN CA 40 MG TABLET (FP) PO SCH (22:00)
[2019-09-07] MEDS ORDERED: metoPROLOL SUCCINATE 25 MG TAB.SR.24H (FP) PO SCH (22:00)
== END 2019-09-07 13:41 | disposition home health service (06) | DRG 947 ==
LOC: JER 00:22 → JERBED 01:53 → J6S 04:59
PROVIDERS: ADMIT Internal Medicine; ATTEND Nurse Practitioner Acute Care
DX: R53.1 Weakness (principal); N18.6 End stage renal disease; I12.0 Hypertensive chronic kidney disease with stage 5 chronic kidney disease or end stage renal disease; D61.818 Other pancytopenia; Z99.2 Dependence on renal dialysis; I25.10 Atherosclerotic heart disease of native coronary artery without angina pectoris; Z95.1 Presence of aortocoronary bypass graft; E78.5 Hyperlipidemia, unspecified; D64.9 Anemia, unspecified
CPT/HCPCS: 36415; 70450-TC; 71045-TC-FY; 80048; 80053; 80307; 82550; 82553; 82607; 82746; 83735; 83880; 84100; 84484; 85025; 85027; 85610; 85730; 93005; 93010; 97116-GP; 97161-GP; 99285-25; J1644